=== PATIENT | female | born 1960 | race Caucasian/White ===

== ENCOUNTER 2023-09-23 13:02 | Outpatient (CLI) | payer BC, SELFPAY ==
--- NOTE | ~2023-09-23 | MR_ITS ---
EXAMINATION: MR brain/brain stem wo con DATE: 09/23/2023 13:37 INDICATION: Anesthesia of skin. Headache. TECHNIQUE: Magnetic resonance imaging (MRI) of the brain and brainstem was performed without intraven ous contrast. COMPARISON: None. FINDINGS: There are old infarcts in the thalami bilaterally. There are scattered areas of nonspecific increased T2-weighted signal intensity in the cerebral white matter. There is no intracranial hemorr skyler, acute infarction, or abnormal intracranial mass lesion. The ventricles are normal in size. Ther e is mild mucosal thickening in the ethmoid sinuses. The orbits are normal. There is a trace left mas toid effusion. IMPRESSION: 1. 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 2. Mild nonspecific cerebral white matter disease, which likely represents chronic small vessel ische nicholas disease. Reviewed, dictated and finalized at location A. IMPRESSION: 1. 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 2. Mild nonspecific cerebral white matter disease, which likely represents health care marketing manager kacy small vessel ischemic disease.
--- NOTE | ~2023-09-23 | CT_ITS ---
CT Scan of the Chest without Contrast: Clinical Indication: Lung cancer screening, nicotine dependence Technique: Contiguous sections were acquired throughout the chest without intravenous contrast. Dose reduction technique was used on this scan by utilizing automated exposure control and iterative recon struction technique. The dose-length product (DLP) was 37.66 mGy-cm. Findings: There is no evidence of any significant mediastinal, hilar or axillary lymphadenopathy. Minimal peric ardial fluid noted. No pleural effusions. The lungs are clear. No pulmonary nodules or infiltrates are noted. Probable mild emphysema. Images through the upper abdomen reveal no abnormalities. Mild compression deformity of L1 noted. Impression: Lung RADS 1: Negative. 12 month follow-up screening CT advised. Reviewed, dictated and finalized at location . Impression: Lung RADS 1: Negative. 12 month follow-up screening CT advised.
== END 2023-09-23 13:03 ==
LOC: MICIMG 13:04
PROVIDERS: PCP Nurse Practitioner Family; Visit Provider Nurse Practitioner Family
DX: Z12.2 Encounter for screening for malignant neoplasm of respiratory organs (principal); I25.2 Old myocardial infarction; R90.82 White matter disease, unspecified; R20.0 Anesthesia of skin; Z87.891 Personal history of nicotine dependence
CPT/HCPCS: 70551; 71271

== ENCOUNTER 2024-01-14 17:49 | Emergency (ER) | payer BC, SELFPAY ==
[2024-01-14 17:55] VITALS: BP 152/113; PULSE 104; RESP 16; TEMP 36.9; O2SAT 98
[2024-01-14 18:17] VITALS: RESP 19; O2SAT 97
[2024-01-14 18:55] LABS: Influenza A QL RT-PCR Negative (Negative); Influenza B QL RT-PCR Negative (Negative); RSV RNA, RT-PCR Negative (Negative); SARS-CoV-2 RNA PCR Positive (Negative)
--- NOTE | 2024-01-14 19:27 | ED.GENADULT ---
HPI - General Adult General Chief complaint: Unspecified Stated complaint: headache, dizzy Time Seen by Provider: 01/14/24 19:14 History of Present Illness HPI narrative: Patient is a 63-year-old female presents to the ER with complaints of dizziness, headache, nausea and vomiting. She reports her symptoms have been going on for 2 days. Patient denies fever, shortness of breath, and chest pain. She endorses muscle aches. Related Data Home Medications Medication Instructions Recorded Confirmed aspirin 325 mg tablet 650 mg PO DAILY PRN 07/06/23 08/31/23 brimonidine 0.2 %-timolol 0.5 % 1 drp EACH EYE Q12H 07/06/23 08/31/23 eye drops diphenhydramine HCl 25 mg capsule 25 mg PO TID PRN 07/06/23 08/31/23 (Benadryl) Allergies Allergy/AdvReac Type Severity Reaction Status Date / Time acetazolamide AdvReac Intermediate Abdominal Verified 01/14/24 18:08 Pain Review of Systems Review of Systems: All systems reviewed & are unremarkable except as noted in HPI and below PMFSH Past Medical History Medical History Ribs, multiple fractures Surgical History Surgical History H/O total hysterectomy age 19 Family History Family History Father Cerebrovascular accident Heart disease Mother Age related osteoporosis Social History Social History Smoking status: Current every day smoker Tobacco type: cigarettes Alcohol intake: current Substance use: current Substance use type: marijuana Do You Feel Safe in your Home?: Yes Lack of Transportation: YES Lack of Food: Sometimes True Current Housing: I Have Housing Concerned About Future Housing: YES Difficulty Paying Gas/Electric Bills: YES Difficulty Paying for Meds: Decline to Answer Currently Unemployed: No Education: High School Diploma/GED Difficulty w/ Childcare or Family Care: No Exam Narrative: GENERAL: Well appearing, well-nourished, non-toxic, in no acute distress. HEAD: Normocephalic, atraumatic. NECK: Supple. No adenopathy, no masses. RESPIRATORY: Airway patent, respirations nonlabored. Clear to auscultation bilaterally, no rales, rhonchi, wheezing. CARDIOVASCULAR: Regular rate and rhythm without murmurs, rubs, or gallops. Peripheral pulses 2+ and equal bilaterally. ABDOMINAL: Soft, nontender, nondistended, no hepatosplenomegaly. Normoactive BS. MUSCULOSKELETAL: Moves all extremities. Strength/ROM intact without gross deformities. SKIN: Warm, dry, normal color. No rashes. NEURO: A&O X3. Speech clear. Cranial nerves II-XII grossly intact. Steady gait. No ataxic movements. PSYCHIATRIC: Appropriate mood and affect. Normal interaction. Course Vital Signs Vital signs: Vital Signs Temperature 36.9 C 01/14/24 17:55 Pulse Rate 104 H 01/14/24 17:55 Respiratory Rate 16 01/14/24 17:55 Blood Pressure 152/113 H 01/14/24 17:55 Pulse Oximetry 98 01/14/24 17:55 Oxygen Delivery Room Air 01/14/24 17:55 Temperature 37.1 C 01/14/24 23:10 Pulse Rate 84 01/14/24 23:10 Respiratory Rate 16 01/14/24 23:10 Blood Pressure 123/108 H 01/14/24 23:10 Pulse Oximetry 100 01/14/24 23:10 Oxygen Delivery Room Air 01/14/24 17:55 Medical Decision Making MDM Narrative Medical decision making narrative: Patient is a 63-year-old female presents to the ER with complaints of dizziness, headache, nausea and vomiting. She reports her symptoms have been going on for 2 days. Patient denies fever, shortness of breath, and chest pain. She endorses muscle aches. Pt's COVID test was positive. Will treat pt with Tylenol, Zofran, muscle relaxant, and Ibuprofen. Pt will be encouraged to follow-up with PCP, drink lots of water, and return to the ER with wor
[2024-01-14] MEDS: CYCLOBENZAPRINE HCL 5 MG TABLET PO (21:15)
[2024-01-14] MEDS: ACETAMINOPHEN 500 MG TABLET 1000 MG PO (21:15)
[2024-01-14] MEDS: ONDANSETRON HCL ODT 4 MG TABLET PO (21:15)
[2024-01-14 23:10] VITALS: BP 123/108; PULSE 84; RESP 16; TEMP 37.1; O2SAT 100
[2024-01-15] MEDS: IBUPROFEN 600 MG TABLET PO (00:03)
[2024-01-15 00:44] VITALS: BP 132/96; PULSE 79; RESP 16; O2SAT 99
== END 2024-01-15 00:45 | disposition home or self-care (01) ==
PROVIDERS: Student in an Organized Health Care Education/Training Program; Emergency Provider Registered Nurse; PCP Nurse Practitioner Family
DX: U07.1 COVID-19 (principal); F17.210 Nicotine dependence, cigarettes, uncomplicated
CPT/HCPCS: 87637; 99283; A9270